=== PATIENT | female | born 1990 ===

== ENCOUNTER 2019-08-25 12:01 | Inpatient (IN) ==
[2019-08-25] MEDS: Ringers Solution, Lactated 1,000 ML IVC SCH ×2 (11:20→12:17)
[2019-08-25 11:39] LABS: Basophils # 0.1 K/mcL (0.0-0.2); Basophils % 0.2 %; Hematocrit 33.2 % (35.3-44.9); Hemoglobin 11.1 g/dL (11.5-15.4); Immature Granulocytes % 0.9 % (0-4); Lymphocytes # 1.5 K/mcL (0.6-4.6); Lymphocytes % 7.1 %; Mean Corpuscular HGB Conc 33.4 g/dL (31.6-35.5); Mean Corpuscular Hemoglobin 26.7 pg (28.0-33.3); Mean Corpuscular Volume 79.8 fL (83.0-100.0); Mean Platelet Volume 10.4 fL (9.4-12.4); Monocytes # 0.8 K/mcL (0.0-1.3); Monocytes % 4.1 %; Neutrophils # 17.9 K/mcL (1.6-8.9); Platelet Count 266 K/mcL (140-400); Red Blood Count 4.16 M/mcL (3.82-4.97); Red Cell Distribution Width 14.1 % (11.5-14.5); Segmented Neutrophils % 87.7 %; White Blood Count 20.5 K/mcL (4.3-11.1)
[~2019-08-25 12:01] MED LIST: *HR* FentaNYL (PF) 100 MCG/2 ML VIAL EP ONE; *HR* FentaNYL (PF) 100 MCG/2 ML VIAL IVP PRN; *HR* FentaNYL (PF) 100 MCG/2 ML VIAL ONE; Azithromycin 500 MG in 0.9 % Sodium Chloride 250 ML IVPB ONE; EPHEDrine 50 MG/ML VIAL IVP PRN; Famotidine 20 MG/2 ML VIAL IVP PRN; Lidocaine 1% 20 ML MDV INFILT PRN; Metoclopramide 10 MG/2 ML VIAL IVP PRN; Naloxone 0.4 MG/ML INJ IVP PRN; Ondansetron 4 MG/2 ML VIAL IVP PRN; Penicillin G Potassium 5,000,000 UNIT in 0.9 % Sodium Chloride Mini Bag 100 ML IVPB ONE; Ropivacaine/PF 0.2% 20 ML VIAL EP ONE; Ropivacaine/PF 0.2% 20 ML VIAL ONE
[2019-08-25] MEDS: Epidural Premix (fent/bupiv) 110 ML EP SCH ×2 (12:39→18:53)
[2019-08-25] MEDS ORDERED: Oxytocin 20 units/ LR 1000 mL 20 UNIT/1,000 ML BAG IVC SCH ×2 (13:45→23:45)
[2019-08-25] MEDS: Penicillin G Potassium 2,500,000 UNIT in 0.9 % Sodium Chloride 100 ML IVPB SCH ×2 (15:41→21:15)
[2019-08-25] MEDS ORDERED: Oxytocin 20 units/ LR 1000 mL 20 UNIT/1,000 ML BAG IVC ONE (23:33)
[2019-08-25] MEDS ORDERED: CeFAZolin 2,000 MG/50 ML BAG IVPB ONE (23:33)
[2019-08-25] MEDS ORDERED: Azithromycin 500 MG in 0.9 % Sodium Chloride 250 ML IVPB ONE (23:36)
[2019-08-25] MEDS ORDERED: *HR* Ropivacaine/PF 0.5% 20 ML VIAL ONE (23:47)
[2019-08-25] MEDS ORDERED: Lidocaine -MPF 2% 5 ML VIAL ONE (23:47)
[2019-08-25] MEDS ORDERED: *HR* Oxytocin 10 UNIT/ML VIAL IM ONE (23:58)
[2019-08-26] MEDS ORDERED: Ringers Solution, Lactated 1,000 ML ONE (00:22)
[2019-08-26] MEDS ORDERED: *HR* Morphine Sulfate/PF 10 MG/10 ML AMPUL ONE (00:31)
[2019-08-26] MEDS ORDERED: Lidocaine -MPF 2% 5 ML VIAL ONE (00:33)
[2019-08-26] MEDS ORDERED: Propofol 500 MG/50 ML INFUS..BTL ONE (00:34)
[2019-08-26] MEDS ORDERED: Ondansetron 4 MG/2 ML VIAL IVP PRN ×2 (03:07→03:29)
[2019-08-26] MEDS ORDERED: Ibuprofen 400 MG TABLET PO PRN (03:07)
[2019-08-26] MEDS ORDERED: *HR* OxyCODONE/APAP 5/325 TABLET PO PRN (03:07)
[2019-08-26] MEDS ORDERED: Acetaminophen IV 1,000 MG/100 ML INFUS..BTL IVPB ONE (03:09)
[2019-08-26] MEDS ORDERED: Rho Immune Globulin 1,500 UNIT SYRINGE IM ONE (03:29)
[2019-08-26] MEDS ORDERED: Metoclopramide 10 MG/2 ML VIAL IVP PRN (03:29)
[2019-08-26] MEDS ORDERED: Sennosides 8.6 MG TABLET PO PRN (03:29)
[2019-08-26] MEDS ORDERED: Ringers Solution, Lactated 1,000 ML IVC SCH (03:29)
[2019-08-26] MEDS: Oxytocin 20 units/ LR 1000 mL 20 UNIT/1,000 ML BAG IVC SCH ×2 (05:31→12:08)
[2019-08-26] MEDS: Simethicone 80 MG TAB.CHEW PO PRN ×2 (05:31→16:58)
[2019-08-26] MEDS: Ibuprofen 600 MG TABLET PO PRN ×3 (05:31→20:03)
[2019-08-26 06:11] LABS: Lymphocytes % 5.2 %
[2019-08-26 06:12] LABS: Basophils % 0.1 %; Hematocrit 27.1 % (35.3-44.9); Hemoglobin 8.6 g/dL (11.5-15.4); Immature Granulocytes % 0.9 % (0-4); Lymphocytes # 1.3 K/mcL (0.6-4.6); Mean Corpuscular HGB Conc 31.7 g/dL (31.6-35.5); Mean Corpuscular Volume 81.9 fL (83.0-100.0); Mean Platelet Volume 10.6 fL (9.4-12.4); Monocytes # 1.4 K/mcL (0.0-1.3); Monocytes % 5.3 %; Platelet Count 238 K/mcL (140-400); Red Blood Count 3.31 M/mcL (3.82-4.97); Red Cell Distribution Width 14.5 % (11.5-14.5); Segmented Neutrophils % 88.5 %; White Blood Count 25.6 K/mcL (4.3-11.1)
[2019-08-26 06:16] LABS: Neutrophils # 22.7 K/mcL (1.6-8.9)
[2019-08-26 06:56] LABS: Platelet Estimate Normal (Normal)
[2019-08-26] MEDS: Prenatal Vit/FA 1 EACH TABLET PO SCH (09:08)
[2019-08-26] MEDS: metroNIDAZOLE 500 MG TABLET PO SCH ×3 (09:08→20:03)
[2019-08-26] MEDS: cephALEXin 500 MG CAPSULE PO SCH ×3 (09:08→20:03)
[2019-08-26] MEDS: *HR* OxyCODONE/APAP 5/325 TABLET PO PRN ×2 (14:07→21:09)
[2019-08-27] MEDS: Prenatal Vit/FA 1 EACH TABLET PO SCH (08:42)
[2019-08-27] MEDS: *HR* OxyCODONE/APAP 5/325 TABLET PO PRN ×3 (08:42→19:40)
[2019-08-27] MEDS: cephALEXin 500 MG CAPSULE PO SCH ×3 (08:42→19:40)
[2019-08-27] MEDS: Simethicone 80 MG TAB.CHEW PO PRN ×3 (08:42→21:30)
[2019-08-27] MEDS: metroNIDAZOLE 500 MG TABLET PO SCH ×3 (08:42→19:40)
[2019-08-27] MEDS: Ibuprofen 600 MG TABLET PO PRN ×3 (10:35→22:40)
[2019-08-28] MEDS: *HR* OxyCODONE/APAP 5/325 TABLET PO PRN (02:18)
[2019-08-28 07:56] VITALS: BP 114/70
[2019-08-28] MEDS: Prenatal Vit/FA 1 EACH TABLET PO SCH (07:59)
[2019-08-28] MEDS: Ibuprofen 600 MG TABLET PO PRN (07:59)
[2019-08-28] MEDS: Simethicone 80 MG TAB.CHEW PO PRN (08:02)
== END 2019-08-28 11:06 | disposition home or self-care (01) | DRG 787 ==
LOC: 1NENULAB → 1NENUOBS 08-26 04:01
PROVIDERS: ADMIT Advanced Practice Midwife; ATTEND Advanced Practice Midwife